=== PATIENT | male | born 1955 | race Caucasian/White ===

== ENCOUNTER → 2017-11-12 11:20 | Outpatient (CLI) | payer BC, SELFPAY ==
--- NOTE | 2017-11-12 | DI.RAD.S_ITS ---
PROCEDURE: XR RIBS LT 2V INDICATIONS: RIB PAIN TECHNIQUE: 2 views of the left ribs were acquired. COMPARISON: [facility], , CHEST 2 VIEW, 04/13/2007, 9:07. FINDINGS: Surgical changes and devices: None. Skin marker present over the lower left rib cage. Bones and chest wall: There is a fracture deformity at the anterior end of the left 10th rib. No additional fractures seen. No suspicious bony lesions. Overlying soft tissues appear unremarkable. Lungs and pleura: The visualized lung appears clear. No pleural effusions or pneumothorax are visible. IMPRESSION: Fracture left 10th anterior rib, presumably acute Dictated by: Juan Hernandez M.D. on 11/12/2017 at 11:43 Approved by: Juan Hernandez M.D. on 11/12/2017 at 11:45
== END ==
PROVIDERS: Family Provider Family Medicine; PCP Family Medicine; Visit Provider Family Medicine
DX: S22.32XA Fracture of one rib, left side, initial encounter for closed fracture (principal); R07.81 Pleurodynia
CPT/HCPCS: 71100